=== PATIENT | female | born 1945 | race African-American/Black ===

== ENCOUNTER 2016-10-03 14:50 | Emergency (ER) | payer MEDICARE, MEDICAID ==
[~2016-10-03] VITALS: Ht 152.4 cm; Wt 111.0 kg
[~2016-10-03 14:50] MED LIST: AGGRENOX1 CAP OR; ALBUTEROL SUL0.083 % IN; ALLOPURINOL300 MG PO; AMLODIPINE2.5 MG PO; AMOXICILLIN500 MG OR; AMOXIL500 MG OR; AVELOX400 MG PO; BD PEN NEEDL32 GX4MM; BD PEN NEEDL32 GX4MM SC; BUMETANIDE1 MG PO; BUMEX OR; BUMEX PO; BUMEX0.5 MG OR; COLCHICINE0.6 M1 OR; COREG6.25 MG PO; COUMADIN5 MG PO; DILAUDID 2MG2 MG/TA1 PO; DILAUDID4 MG PO; DIOVAN80 MG OR; DIOVAN80 MG PO; DURAGESIC75 MCG/H1; FENTANYL TD; FLEXERIL OR; FLEXERIL PO; FOLIC ACID PO; FOLIC ACID1 MG PO; FUROSEMIDE40 MG PO; GABAPENTIN100 MG PO; GABAPENTIN300 MG PO; GABAPENTIN400 MG PO; GLIPIZIDE ER2.5 MG OR; GLIPIZIDE ER2.5 MG PO; GLIPIZIDE10 MG PO; INDOMETHACIN50 MG PO; IPRATROPIUM BROMIDE IN; IPRATROPIUM BROMIDE/ IN; ISOSORB MONO30 MG PO; LASIX 40 MG TAB40 MG PO; LASIX 40 MG40 MG/TAB PO; LEVEMIR FLEXPEN SC; LEVEMIR SC; LORTAB 10 OR; LORTAB 10 PO; LUMIGAN0.01 % OU; LYRICA50 MG PO; MAGNESIUM-OX400 MG PO; MEDDOSEPAK PO; MELOXICAM15 MG PO; METAXALONE800 M1 PO; METFORMIN500 M1 PO; METOPROL TAR25 MG PO; MOBIC15 M1 PO; NOVOLIN 70/30 SC; NOVOLOG100 IU/1 M SC; OMEPRAZOLE40 MG PO; OXYGEN NAB; PERCOCET1 TA2 OR; POT CHLORIDE20 ME3 PO; POTASSIUM CHLO20 MEQ PO; PRAVASTATIN80 MG PO; PREDNISONE20 MG PO; PRILOSEC20 MG/CAP PO; PROMETH/COD1 ML OR; REQUIP0.5 MG PO; ROBITUSSI8 OR; ROPINIROLE0.5 MG OR; ROPINIROLE0.5 MG PO; ROPINIROLE1 MG PO; SPIRIVA IN; STOOL SOFTENER100 MG PO; SYMBICORT1 AE1 IN; TEMAZEPAM15 MG PO; ULTRAM50 M1 PO; ULTRAM50 MG OR; VENTOLIN HFA IN; VICODIN1 TAB PO; VICTOZA18 MG/3 ML SC; VITAMIN D50000 UN1 PO; ZITHROMAX250 MG OR; ZITHROMAX500 MG PO; [UNRECOGNIZED DRUG - REMARK]; [UNRECOGNIZED DRUG - REMARK] SC
[2016-10-03] MEDS ORDERED: LYRICA75 MG PO (15:19)
[2016-10-03 15:25] VITALS: BP 143/75
[2016-10-03] MEDS ORDERED: COLACE100 MG PO (15:29)
[2016-10-03] MEDS ORDERED: LEVEMIR FL100 UNIT/M SC (15:30)
[2016-10-03] MEDS ORDERED: BREO ELLIPTA 101 INH IN (15:31)
[2016-10-03] MEDS ORDERED: ULORIC40 MG PO (15:31)
[2016-10-03] MEDS ORDERED: ZYLOPRIM300 MG PO (15:32)
[2016-10-03] MEDS ORDERED: TIZANIDINE HCL4 MG PO (15:32)
[2016-10-03] MEDS ORDERED: CILOSTAZOL50 MG PO (15:33)
[2016-10-03] MEDS ORDERED: LOPRESSOR25 M1 PO (15:34)
[2016-10-03] MEDS ORDERED: HUMULIN 70/30 K1 INJ IJ (15:34)
[2016-10-03] MEDS ORDERED: BUMETANIDE2 MG PO (15:34)
[2016-10-03] MEDS ORDERED: HYDROMORPHON8 MG PO (15:35)
[2016-10-03] MEDS ORDERED: FENTANYL100 MCG/H TD (15:35)
[2016-10-03] MEDS ORDERED: KP FOLIC ACID800 MCG PO (15:40)
[2016-10-03] MEDS ORDERED: DUONEB IN (15:41)
== END 2016-10-03 15:25 | disposition home or self-care (01) ==
LOC: ED 14:50
DX: E11.42 Type 2 diabetes mellitus with diabetic polyneuropathy (principal); R22.43 Localized swelling, mass and lump, lower limb, bilateral

== ENCOUNTER → 2018-09-06 | Outpatient (REF) | payer MEDICARE, MEDICAID ==
[~2018-09-06] MED LIST changes: +BREO ELLIPTA 101 INH IN; +BUMETANIDE2 MG PO; +CILOSTAZOL50 MG PO; +COLACE100 MG PO; +DUONEB IN; +FENTANYL100 MCG/H TD; +HUMULIN 70/30 K1 INJ IJ; +HYDROMORPHON8 MG PO; +KP FOLIC ACID800 MCG PO; +LEVEMIR FL100 UNIT/M SC; +LOPRESSOR25 M1 PO; +LYRICA75 MG PO; +TIZANIDINE HCL4 MG PO; +ULORIC40 MG PO; +ZYLOPRIM300 MG PO
[2018-09-06 13:28] LABS: CREATININE 2.5 mg/dL (0.5-1.0); MAGNESIUM 1.8 mg/dL (1.6-2.3)
== END | disposition home or self-care (01) ==
LOC: LAB 12:40
PROVIDERS: ATTEND Internal Medicine Nephrology
DX: Z87.448 Personal history of other diseases of urinary system (principal)

== ENCOUNTER → 2018-10-04 | Outpatient (REF) | payer MEDICARE, MEDICAID | END | disposition home or self-care (01) | LOC: LAB 10:19 | PROVIDERS: ATTEND Internal Medicine Endocrinology, Diabetes & Metabolism | DX: E11.65 Type 2 diabetes mellitus with hyperglycemia (principal) ==

== ENCOUNTER 2021-10-28 16:44 | Emergency (ER) | payer MEDICARE, MEDICAID ==
[~2021-10-28] VITALS: Ht 152.4 cm; Wt 100.0 kg
[2021-10-28 17:44] LABS: HEMATOCRIT 36.4 % (37.0-47.0); IMMATURE GRANULOCYTES 0.4 % (0.0-5.0); MEAN CELL VOLUME 93.6 fL CALC (80.0-100.0); MEAN CORPUSCULAR HGB 28.3 pG CALC (26.0-32.0); MEAN CORPUSCULAR HGB CONC 30.2 g/dL CAL (32.0-36.0); NEUT# 4.22 thou/uL (2.00-7.15); RED BLOOD COUNT 3.89 mill/uL (4.20-5.60); RED CELL DISTRI WIDTH 12.6 % (11.5-15.5)
[2021-10-28 18:00] LABS: ALBUMIN 4.2 g/dL (3.2-5.0); BILIRUBIN, TOTAL 0.3 mg/dL (0.0-1.4); CREATININE 3.2 mg/dL (0.5-1.0); POTASSIUM 4.4 mmol/l (3.5-5.1); TOTAL PROTEIN 8.1 g/dL (6.3-8.2)
[2021-10-28 18:35] VITALS: BP 127/63
== END 2021-10-28 19:05 | disposition home or self-care (01) ==
LOC: ED 16:44
PROVIDERS: Family Medicine
DX: S00.83XA Contusion of other part of head, initial encounter (principal); S00.81XA Abrasion of other part of head, initial encounter; I10 Essential (primary) hypertension; E11.9 Type 2 diabetes mellitus without complications; W01.0XXA Fall on same level from slipping, tripping and stumbling without subsequent striking against object, initial encounter; Z79.4 Long term (current) use of insulin

== ENCOUNTER 2021-11-06 12:49 | Emergency (ER) | payer MEDICARE, MEDICAID ==
[~2021-11-06] VITALS: Ht 152.4 cm; Wt 100.7 kg
[2021-11-06 14:20] VITALS: BP 142/73
== END 2021-11-06 14:39 | disposition home or self-care (01) ==
LOC: ED 12:49
DX: S80.01XA Contusion of right knee, initial encounter (principal); I10 Essential (primary) hypertension; E11.9 Type 2 diabetes mellitus without complications; W01.0XXA Fall on same level from slipping, tripping and stumbling without subsequent striking against object, initial encounter; Y92.009 Unspecified place in unspecified non-institutional (private) residence as the place of occurrence of the external cause; Z79.4 Long term (current) use of insulin

== ENCOUNTER 2022-02-17 19:50 | Emergency (ER) | payer MEDICARE, MEDICAID ==
[~2022-02-17] VITALS: Ht 152.4 cm; Wt 105.5 kg
[2022-02-17 19:57] VITALS: BP 164/83
[2022-02-17 21:18] LABS: HEMATOCRIT 38.1 % (37.0-47.0); HEMOGLOBIN 11.1 g/dl (12.0-16.0); MEAN CELL VOLUME 96.9 fL CALC (80.0-100.0); MEAN CORPUSCULAR HGB 28.2 pG CALC (26.0-32.0); MEAN CORPUSCULAR HGB CONC 29.1 g/dL CAL (32.0-36.0); NEUT# 3.68 thou/uL (2.00-7.15); RED BLOOD COUNT 3.93 mill/uL (4.20-5.60); RED CELL DISTRI WIDTH 14.5 % (11.5-15.5)
[2022-02-17 21:27] LABS: URINE BILIRUBIN - DIPSTICK NEGATIVE (NEGATIVE); URINE BLOOD DIPSTICK TRACE-INTACT (NEGATIVE); URINE COLOR YELLOW; URINE GLUCOSE - DIPSTICK 250 mg/dL (NEGATIVE); URINE KETONE NEGATIVE (NEGATIVE); URINE LEUK ESTERASE NEGATIVE (NEGATIVE); URINE PH 6.5 (4.5-8.0); URINE PROTEIN - DIPSTICK 100 mg/dL (NEG-TRACE); URINE SPECIFIC GRAVITY 1.015; URINE UROBILINOGEN - DIPSTICK 0.2 E.U./dL (0.2)
[2022-02-17 21:30] VITALS: BP 182/92
[2022-02-17 21:33] LABS: URINE NITRITE - DIPSTICK NEGATIVE (Negative); URINE RBC 0-2 RBC/hpf (0-5); URINE SQUAMOUS EPITHELIAL CELL RARE EPI/hpf (0-FEW); URINE WBC 0-2 WBC/hpf (0-5)
[2022-02-17 21:46] VITALS: BP 167/80
[2022-02-17 21:46] LABS: ALBUMIN 3.9 g/dL (3.2-5.0); CREATININE 2.5 mg/dL (0.5-1.0); POTASSIUM 5.1 mmol/l (3.5-5.1); TOTAL PROTEIN 6.8 g/dL (6.3-8.2)
[2022-02-17 21:48] LABS: BILIRUBIN, TOTAL 0.3 mg/dL (0.0-1.4)
[2022-02-17 22:00] VITALS: BP 164/96
[2022-02-17] MEDS ORDERED: ULTRAM50 M1 PO (22:01)
[2022-02-17 22:03] VITALS: BP 164/96
== END 2022-02-17 22:19 | disposition home or self-care (01) ==
LOC: ED 19:50
PROVIDERS: Nurse Practitioner
DX: M54.6 Pain in thoracic spine (principal); I10 Essential (primary) hypertension; E11.9 Type 2 diabetes mellitus without complications; X50.0XXA Overexertion from strenuous movement or load, initial encounter; Y93.89 Activity, other specified; Y92.003 Bedroom of unspecified non-institutional (private) residence as the place of occurrence of the external cause; Z79.4 Long term (current) use of insulin; Z95.818 Presence of other cardiac implants and grafts

== ENCOUNTER 2022-07-24 05:25 | Emergency (ER) | payer MEDICARE, MEDICAID ==
[~2022-07-24] VITALS: Ht 157.5 cm; Wt 104.0 kg
[2022-07-24 07:26] VITALS: BP 136/86
== END 2022-07-24 07:40 | disposition home or self-care (01) ==
LOC: ED 05:25
DX: S06.0X0A Concussion without loss of consciousness, initial encounter (principal); S00.03XA Contusion of scalp, initial encounter; I10 Essential (primary) hypertension; E11.9 Type 2 diabetes mellitus without complications; W18.39XA Other fall on same level, initial encounter; Y92.002 Bathroom of unspecified non-institutional (private) residence as the place of occurrence of the external cause; Z79.4 Long term (current) use of insulin; Z95.818 Presence of other cardiac implants and grafts

== ENCOUNTER 2022-07-29 01:45 | Emergency (ER) | payer MEDICARE, MEDICAID ==
[~2022-07-29] VITALS: Ht 157.5 cm; Wt 110.4 kg
[2022-07-29] VITALS (16 sets, daily range): BP systolic 100–189; BP diastolic 65–142
[2022-07-29 04:33] LABS: BASO% 0.4 % (0-3); EOS% 1.7 % (0-8); HEMATOCRIT 36.6 % (37.0-47.0); HEMOGLOBIN 10.7 g/dl (12.0-16.0); IMMATURE GRANULOCYTES 0.9 % (0.0-5.0); LYMPH% 16.4 % (15-41); MEAN CELL VOLUME 98.4 fL CALC (80.0-100.0); MEAN CORPUSCULAR HGB 28.8 pG CALC (26.0-32.0); MEAN CORPUSCULAR HGB CONC 29.2 g/dL CAL (32.0-36.0); MONO% 11.8 % (2-13); NEUT# 5.32 thou/uL (2.00-7.15); NEUT% 68.8 % (42-76); RED BLOOD COUNT 3.72 mill/uL (4.20-5.60); RED CELL DISTRI WIDTH 14.1 % (11.5-15.5)
[2022-07-29 04:34] LABS: URINE BILIRUBIN - DIPSTICK NEGATIVE (NEGATIVE); URINE BLOOD DIPSTICK SMALL (NEGATIVE); URINE COLOR YELLOW; URINE GLUCOSE - DIPSTICK NEGATIVE (NEGATIVE); URINE KETONE NEGATIVE (NEGATIVE); URINE LEUK ESTERASE NEGATIVE (NEGATIVE); URINE PROTEIN - DIPSTICK 100 mg/dL (NEG-TRACE); URINE SPECIFIC GRAVITY 1.025; URINE UROBILINOGEN - DIPSTICK 0.2 E.U./dL (0.2)
[2022-07-29 04:35] LABS: URINE NITRITE - DIPSTICK NEGATIVE (Negative)
[2022-07-29 04:41] LABS: URINE AMORPH SEDIMENT FEW hpf (NONE-FEW); URINE BACTERIA FEW hpf; URINE SQUAMOUS EPITHELIAL CELL FEW EPI/hpf (0-FEW)
[2022-07-29 04:45] LABS: ALBUMIN 4.3 g/dL (3.2-5.0); BILIRUBIN, TOTAL 0.2 mg/dL (0.0-1.4); CREATININE 3.2 mg/dL (0.5-1.0); TOTAL PROTEIN 7.6 g/dL (6.3-8.2)
[2022-07-29 04:46] LABS: POTASSIUM 5.7 mmol/l (3.5-5.1)
[2022-07-29] MEDS ORDERED: SPS15 GM/601 PO (06:38)
== END 2022-07-29 09:55 | disposition home or self-care (01) ==
LOC: ED 01:45
PROVIDERS: Family Medicine
DX: S00.03XA Contusion of scalp, initial encounter (principal); M54.2 Cervicalgia; I13.0 Hypertensive heart and chronic kidney disease with heart failure and stage 1 through stage 4 chronic kidney disease, or unspecified chronic kidney disease; I50.9 Heart failure, unspecified; E11.22 Type 2 diabetes mellitus with diabetic chronic kidney disease; N18.4 Chronic kidney disease, stage 4 (severe); E87.5 Hyperkalemia; I48.91 Unspecified atrial fibrillation; E78.00 Pure hypercholesterolemia, unspecified; R53.1 Weakness; R26.89 Other abnormalities of gait and mobility; W18.30XA Fall on same level, unspecified, initial encounter; Y92.009 Unspecified place in unspecified non-institutional (private) residence as the place of occurrence of the external cause; Z95.2 Presence of prosthetic heart valve; Z91.81 History of falling; Z79.4 Long term (current) use of insulin; Z95.818 Presence of other cardiac implants and grafts

== ENCOUNTER 2022-07-30 03:53 | Observation (INO) | payer MEDICARE, MEDICAID ==
[~2022-07-30] VITALS: Ht 157.5 cm; Wt 103.8 kg
[2022-07-30] VITALS (18 sets, daily range): BP systolic 97–188; BP diastolic 57–88
[~2022-07-30 03:53] MED LIST changes: +SPS15 GM/601 PO
[2022-07-30 06:25] LABS: BASO% 0.5 % (0-3); EOS% 2.8 % (0-8); HEMATOCRIT 32.8 % (37.0-47.0); HEMOGLOBIN 9.7 g/dl (12.0-16.0); IMMATURE GRANULOCYTES 0.2 % (0.0-5.0); LYMPH% 14.4 % (15-41); MEAN CELL VOLUME 98.2 fL CALC (80.0-100.0); MEAN CORPUSCULAR HGB CONC 29.6 g/dL CAL (32.0-36.0); MONO% 13.8 % (2-13); NEUT# 4.21 thou/uL (2.00-7.15); NEUT% 68.3 % (42-76); RED BLOOD COUNT 3.34 mill/uL (4.20-5.60); RED CELL DISTRI WIDTH 14.1 % (11.5-15.5)
[2022-07-30 06:36] LABS: ALBUMIN 4.2 g/dL (3.2-5.0); CREATININE 3.2 mg/dL (0.5-1.0); TOTAL PROTEIN 7.8 g/dL (6.3-8.2)
[2022-07-30 06:37] LABS: BILIRUBIN, TOTAL 0.3 mg/dL (0.0-1.4); POTASSIUM 5.5 mmol/l (3.5-5.1)
[2022-07-30 06:42] LABS: INTERNATIONAL NORMALIZED RATIO 1.1 RATIO (0.7-1.3); PROTHROMBIN TIME 10.7 SECONDS (9.0-12.5)
[2022-07-31] VITALS (12 sets, daily range): BP systolic 143–194; BP diastolic 52–71
[2022-07-31 05:28] LABS: BASO% 0.5 % (0-3); EOS% 2.4 % (0-8); HEMATOCRIT 31.6 % (37.0-47.0); HEMOGLOBIN 9.5 g/dl (12.0-16.0); IMMATURE GRANULOCYTES 0.3 % (0.0-5.0); LYMPH% 23.3 % (15-41); MEAN CELL VOLUME 96.6 fL CALC (80.0-100.0); MEAN CORPUSCULAR HGB 29.1 pG CALC (26.0-32.0); MEAN CORPUSCULAR HGB CONC 30.1 g/dL CAL (32.0-36.0); MONO% 14.8 % (2-13); NEUT# 3.48 thou/uL (2.00-7.15); NEUT% 58.7 % (42-76); RED BLOOD COUNT 3.27 mill/uL (4.20-5.60); RED CELL DISTRI WIDTH 14.1 % (11.5-15.5)
[2022-07-31 05:46] LABS: ALBUMIN 3.8 g/dL (3.2-5.0); CHOLESTEROL HDL RATIO 2.2 (<4.4 (CALC)); CREATININE 3.1 mg/dL (0.5-1.0); POTASSIUM 5.1 mmol/l (3.5-5.1); TOTAL PROTEIN 7.1 g/dL (6.3-8.2)
[2022-07-31 05:48] LABS: BILIRUBIN, TOTAL 0.5 mg/dL (0.0-1.4)
[2022-08-01 04:00] VITALS: BP 145/55
[2022-08-01 04:28] VITALS: BP 145/55
[2022-08-01 05:05] LABS: BASO% 0.7 % (0-3); EOS% 5.5 % (0-8); HEMATOCRIT 32.2 % (37.0-47.0); HEMOGLOBIN 9.9 g/dl (12.0-16.0); IMMATURE GRANULOCYTES 0.4 % (0.0-5.0); LYMPH% 26.6 % (15-41); MEAN CELL VOLUME 94.4 fL CALC (80.0-100.0); MEAN CORPUSCULAR HGB CONC 30.7 g/dL CAL (32.0-36.0); MONO% 13.1 % (2-13); NEUT# 3.02 thou/uL (2.00-7.15); NEUT% 53.7 % (42-76); RED BLOOD COUNT 3.41 mill/uL (4.20-5.60); RED CELL DISTRI WIDTH 14.1 % (11.5-15.5)
[2022-08-01 05:17] LABS: ALBUMIN 3.5 g/dL (3.2-5.0); BILIRUBIN, TOTAL 0.4 mg/dL (0.0-1.4); CREATININE 3.1 mg/dL (0.5-1.0); TOTAL PROTEIN 6.7 g/dL (6.3-8.2)
[2022-08-01 06:45] VITALS: BP 136/73
[2022-08-01 10:23] VITALS: BP 130/76
[2022-08-01 16:03] VITALS: BP 152/59
[2022-08-01 20:02] VITALS: BP 116/46
[2022-08-02 00:19] VITALS: BP 131/47
[2022-08-02 04:19] VITALS: BP 139/62
[2022-08-02 05:32] LABS: BASO% 0.8 % (0-3); EOS% 7.3 % (0-8); HEMATOCRIT 33.1 % (37.0-47.0); HEMOGLOBIN 9.9 g/dl (12.0-16.0); IMMATURE GRANULOCYTES 0.2 % (0.0-5.0); LYMPH% 34.5 % (15-41); MEAN CELL VOLUME 95.9 fL CALC (80.0-100.0); MEAN CORPUSCULAR HGB 28.7 pG CALC (26.0-32.0); MEAN CORPUSCULAR HGB CONC 29.9 g/dL CAL (32.0-36.0); MONO% 15.3 % (2-13); NEUT% 41.9 % (42-76); RED BLOOD COUNT 3.45 mill/uL (4.20-5.60); RED CELL DISTRI WIDTH 13.9 % (11.5-15.5)
[2022-08-02 05:49] LABS: ALBUMIN 3.1 g/dL (3.2-5.0); CREATININE 3.1 mg/dL (0.5-1.0); POTASSIUM 3.6 mmol/l (3.5-5.1); TOTAL PROTEIN 6.2 g/dL (6.3-8.2)
[2022-08-02 05:50] LABS: BILIRUBIN, TOTAL 0.2 mg/dL (0.0-1.4)
[2022-08-02 06:47] VITALS: BP 128/59
[2022-08-02 19:40] VITALS: BP 122/49
[2022-08-02 23:01] VITALS: BP 95/47
[2022-08-02 23:52] VITALS: BP 118/49
[2022-08-03 04:14] VITALS: BP 144/68
[2022-08-03 06:36] VITALS: BP 121/49
[2022-08-03 11:34] VITALS: BP 130/47
[2022-08-03 11:52] VITALS: BP 130/47
[2022-08-03 14:10] VITALS: BP 121/62
== END 2022-08-03 17:47 ==
LOC: ED 03:53 → ED-I 06:44 → ED 07:02 → MS2 07:03
PROVIDERS: Family Medicine; Internal Medicine; ADMIT Internal Medicine; ATTEND Internal Medicine
PROC: 0T9B70Z Drainage of Bladder with Drainage Device, Via Natural or Artificial Opening (ICD-10-PCS; principal; 2022-07-30)
DX: I13.0 Hypertensive heart and chronic kidney disease with heart failure and stage 1 through stage 4 chronic kidney disease, or unspecified chronic kidney disease (principal); I50.9 Heart failure, unspecified; E11.22 Type 2 diabetes mellitus with diabetic chronic kidney disease; N18.4 Chronic kidney disease, stage 4 (severe); J44.9 Chronic obstructive pulmonary disease, unspecified; R91.8 Other nonspecific abnormal finding of lung field; E87.5 Hyperkalemia; I48.91 Unspecified atrial fibrillation; E78.00 Pure hypercholesterolemia, unspecified; Z95.818 Presence of other cardiac implants and grafts; Z95.2 Presence of prosthetic heart valve; Z99.81 Dependence on supplemental oxygen; Z79.4 Long term (current) use of insulin; Z95.1 Presence of aortocoronary bypass graft; Z20.822 Contact with and (suspected) exposure to COVID-19
CPT/HCPCS: J1650

== ENCOUNTER 2022-10-24 03:01 | Emergency (ER) | payer MEDICARE, MEDICAID ==
[2022-10-24] VITALS (27 sets, daily range): BP systolic 92–170; BP diastolic 52–86
[~2022-10-24] VITALS: Ht 157.5 cm; Wt 93.0 kg
[2022-10-24 03:50] LABS: BASO% 0.5 % (0-3); EOS% 3.8 % (0-8); HEMOGLOBIN 11.1 g/dl (12.0-16.0); IMMATURE GRANULOCYTES 3.8 % (0.0-5.0); LYMPH% 39.1 % (15-41); MEAN CELL VOLUME 97.3 fL CALC (80.0-100.0); MEAN CORPUSCULAR HGB 27.5 pG CALC (26.0-32.0); MEAN CORPUSCULAR HGB CONC 28.2 g/dL CAL (32.0-36.0); NEUT# 2.56 thou/uL (2.00-7.15); NEUT% 40.8 % (42-76); RED BLOOD COUNT 4.04 mill/uL (4.20-5.60); RED CELL DISTRI WIDTH 13.7 % (11.5-15.5)
[2022-10-24 03:58] LABS: HEMATOCRIT 39.3 % (37.0-47.0)
[2022-10-24 04:04] LABS: ALBUMIN 4.1 g/dL (3.2-5.0); CREATININE 3.6 mg/dL (0.5-1.0); TOTAL PROTEIN 7.5 g/dL (6.3-8.2)
[2022-10-24 04:13] LABS: PROTHROMBIN TIME 10.2 SECONDS (9.0-12.5)
[2022-10-24 04:15] LABS: BILIRUBIN, TOTAL 0.4 mg/dL (0.02-1.3); POTASSIUM 5.9 mmol/l (3.5-5.1)
[2022-10-24 04:41] LABS: URINE BILIRUBIN - DIPSTICK NEGATIVE (NEGATIVE); URINE BLOOD DIPSTICK SMALL (NEGATIVE); URINE COLOR YELLOW; URINE GLUCOSE - DIPSTICK NEGATIVE (NEGATIVE); URINE KETONE NEGATIVE (NEGATIVE); URINE PROTEIN - DIPSTICK 100 mg/dL (NEG-TRACE); URINE UROBILINOGEN - DIPSTICK 0.2 E.U./dL (0.2)
[2022-10-24 04:42] LABS: URINE LEUK ESTERASE LARGE (NEGATIVE); URINE NITRITE - DIPSTICK NEGATIVE (Negative)
[2022-10-24 04:47] LABS: URINE BACTERIA MODERATE hpf; URINE RBC 25-50 RBC/hpf (0-5); URINE SQUAMOUS EPITHELIAL CELL FEW EPI/hpf (0-FEW); URINE WBC >100 WBC/hpf (0-5)
[2022-10-24] MEDS ORDERED: SPS15 GM/601 PO ×2 (06:12→06:16)
[2022-10-24] MEDS ORDERED: PREDNISONE50 MG PO (06:16)
[2022-10-24] MEDS ORDERED: CIPROFLOXACN500 MG PO (06:32)
== END 2022-10-24 10:35 | disposition home or self-care (01) ==
LOC: ED 03:01
PROVIDERS: Family Medicine
DX: J44.1 Chronic obstructive pulmonary disease with (acute) exacerbation (principal); N39.0 Urinary tract infection, site not specified; I13.2 Hypertensive heart and chronic kidney disease with heart failure and with stage 5 chronic kidney disease, or end stage renal disease; E11.22 Type 2 diabetes mellitus with diabetic chronic kidney disease; N18.5 Chronic kidney disease, stage 5; I50.9 Heart failure, unspecified; E87.5 Hyperkalemia; I48.91 Unspecified atrial fibrillation; E78.00 Pure hypercholesterolemia, unspecified; B96.1 Klebsiella pneumoniae [K. pneumoniae] as the cause of diseases classified elsewhere; Z16.12 Extended spectrum beta lactamase (ESBL) resistance; Z99.81 Dependence on supplemental oxygen; Z79.4 Long term (current) use of insulin

== ENCOUNTER 2022-11-06 18:13 | Emergency (ER) | payer MEDICARE, MEDICAID ==
[~2022-11-06] VITALS: Ht 157.5 cm; Wt 98.7 kg
[2022-11-06] VITALS (7 sets, daily range): BP systolic 101–123; BP diastolic 51–67
[~2022-11-06 18:13] MED LIST changes: +CIPROFLOXACN500 MG PO; +PREDNISONE50 MG PO
[2022-11-06 18:47] LABS: URINE BILIRUBIN - DIPSTICK NEGATIVE (NEGATIVE); URINE BLOOD DIPSTICK SMALL (NEGATIVE); URINE COLOR YELLOW; URINE GLUCOSE - DIPSTICK NEGATIVE (NEGATIVE); URINE KETONE NEGATIVE (NEGATIVE); URINE PROTEIN - DIPSTICK 100 mg/dL (NEG-TRACE); URINE UROBILINOGEN - DIPSTICK 0.2 E.U./dL (0.2)
[2022-11-06 18:47] LABS: BASO% 0.2 % (0-3); EOS% 3.4 % (0-8); HEMATOCRIT 37.5 % (37.0-47.0); IMMATURE GRANULOCYTES 2.5 % (0.0-5.0); LYMPH% 5.9 % (15-41); MEAN CELL VOLUME 93.8 fL CALC (80.0-100.0); MEAN CORPUSCULAR HGB 27.5 pG CALC (26.0-32.0); MEAN CORPUSCULAR HGB CONC 29.3 g/dL CAL (32.0-36.0); MONO% 7.8 % (2-13); NEUT# 11.75 thou/uL (2.00-7.15); NEUT% 80.2 % (42-76); RED CELL DISTRI WIDTH 13.5 % (11.5-15.5)
[2022-11-06 18:48] LABS: URINE LEUK ESTERASE SMALL (NEGATIVE); URINE NITRITE - DIPSTICK NEGATIVE (Negative)
[2022-11-06 18:55] LABS: URINE SQUAMOUS EPITHELIAL CELL FEW EPI/hpf (0-FEW)
[2022-11-06 18:56] LABS: URINE YEAST MANY hpf
[2022-11-06 18:58] LABS: ALBUMIN 3.9 g/dL (3.2-5.0); BILIRUBIN, TOTAL 0.3 mg/dL (0.02-1.3); POTASSIUM 4.9 mmol/l (3.5-5.1); TOTAL PROTEIN 6.8 g/dL (6.3-8.2)
[2022-11-06 19:06] LABS: CREATININE 2.1 mg/dL (0.5-1.0)
[2022-11-06] MEDS ORDERED: ALBUTEROL SUL0.083 % IN (19:55)
== END 2022-11-06 20:34 | disposition home or self-care (01) ==
LOC: ED 18:13
PROVIDERS: Family Medicine
DX: J96.10 Chronic respiratory failure, unspecified whether with hypoxia or hypercapnia (principal); I13.0 Hypertensive heart and chronic kidney disease with heart failure and stage 1 through stage 4 chronic kidney disease, or unspecified chronic kidney disease; E11.22 Type 2 diabetes mellitus with diabetic chronic kidney disease; N18.4 Chronic kidney disease, stage 4 (severe); I48.91 Unspecified atrial fibrillation; Z79.4 Long term (current) use of insulin; Z99.81 Dependence on supplemental oxygen; Z95.2 Presence of prosthetic heart valve; Z95.818 Presence of other cardiac implants and grafts; Z20.822 Contact with and (suspected) exposure to COVID-19

== ENCOUNTER 2022-11-13 15:30 | Inpatient (IN) | payer MEDICARE, MEDICAID ==
[2022-11-13] VITALS (46 sets, daily range): BP systolic 84–140; BP diastolic 43–96
[~2022-11-13] VITALS: Ht 157.5 cm; Wt 87.8 kg
[~2022-11-13 15:30] MED LIST changes: -BUMETANIDE2 MG PO; -LOPRESSOR25 M1 PO; +LOPRESSOR50 M1 PO
--- NOTE | 2022-11-13 16:06 | NUR ---
pt arrived by ems for increased sob today. per ems, pt was wearing 5LNC at home with room air sat of 68%, per ems pt was placed on NRB, sats increased to 90%, then switche to cpap, bs 133.
--- NOTE | 2022-11-13 16:25 | NUR ---
at bedside for central line, left IJ
[2022-11-13 16:31] LABS: BASO% 0.3 % (0-3); EOS% 1.4 % (0-8); HEMATOCRIT 34.5 % (37.0-47.0); HEMOGLOBIN 9.7 g/dl (12.0-16.0); IMMATURE GRANULOCYTES 2.3 % (0.0-5.0); LYMPH% 9.6 % (15-41); MEAN CELL VOLUME 97.5 fL CALC (80.0-100.0); MEAN CORPUSCULAR HGB 27.4 pG CALC (26.0-32.0); MEAN CORPUSCULAR HGB CONC 28.1 g/dL CAL (32.0-36.0); MONO% 4.3 % (2-13); NEUT# 9.06 thou/uL (2.00-7.15); NEUT% 82.1 % (42-76); RED BLOOD COUNT 3.54 mill/uL (4.20-5.60); RED CELL DISTRI WIDTH 13.3 % (11.5-15.5)
[2022-11-13 16:41] LABS: ALBUMIN 3.7 g/dL (3.2-5.0); BILIRUBIN, TOTAL 0.2 mg/dL (0.02-1.3); CREATININE 2.6 mg/dL (0.5-1.0); POTASSIUM 4.8 mmol/l (3.5-5.1); TOTAL PROTEIN 6.5 g/dL (6.3-8.2)
--- NOTE | 2022-11-13 17:39 | NUR ---
pt resting comfortably, family at bedside
--- NOTE | 2022-11-13 18:44 | NUR ---
called dr tomlin regarding pts bp, states it is ok to send pt to icu
--- NOTE | 2022-11-13 18:52 | NUR ---
report called to icu, all questions anwsered at this time
--- NOTE | 2022-11-13 20:00 | NUR ---
Reassessment of patient completed. No distress noted.
--- NOTE | 2022-11-13 20:50 | NUR ---
PT BROUGHT UP ON STRETCHER, MONITOR AND 4 LITERS NC WITH NAD. PT EDUCATED ON HOW TO USE CALL LIGHT FOR ASSISTANCE, PT AGREED AND UNDERSTOOD. PT RESTING IN BED WITH CALL LIGHT WITH IN REACH AND BED IN THE LOWEST POSITION. WILL CONTINUE TO MONITOR.
--- NOTE | 2022-11-13 21:00 | NUR ---
pt tx to icu on monitor to icu room 2, vss, pt a&o and nad.
--- NOTE | 2022-11-13 21:00 | NUR ---
Reassessment of patient completed. No distress noted.
[2022-11-14] VITALS (65 sets, daily range): BP systolic 91–149; BP diastolic 39–75
[2022-11-14 05:21] LABS: BASO% 0.1 % (0-3); HEMATOCRIT 33.7 % (37.0-47.0); HEMOGLOBIN 9.6 g/dl (12.0-16.0); IMMATURE GRANULOCYTES 2.5 % (0.0-5.0); LYMPH% 7.9 % (15-41); MEAN CELL VOLUME 97.1 fL CALC (80.0-100.0); MEAN CORPUSCULAR HGB 27.7 pG CALC (26.0-32.0); MEAN CORPUSCULAR HGB CONC 28.5 g/dL CAL (32.0-36.0); MONO% 1.1 % (2-13); NEUT# 10.06 thou/uL (2.00-7.15); NEUT% 88.4 % (42-76); RED BLOOD COUNT 3.47 mill/uL (4.20-5.60); RED CELL DISTRI WIDTH 13.2 % (11.5-15.5)
[2022-11-14 05:32] LABS: ALBUMIN 3.4 g/dL (3.2-5.0); CREATININE 2.7 mg/dL (0.5-1.0); POTASSIUM 4.6 mmol/l (3.5-5.1); TOTAL PROTEIN 6.2 g/dL (6.3-8.2)
[2022-11-14 05:53] LABS: BILIRUBIN, TOTAL 0.1 mg/dL (0.02-1.3)
--- NOTE | 2022-11-14 08:00 | NUR ---
Patient lying supin in bed. Patient denies any pain at this time. Patient is afib on the monitor. No s/s of distress. Patient continously coughs up yellow, thick phlegm; suction at bedside. Patient is unable to move arms higher than a 45 degree angle. Patient can move legs from side to side, and lift the R leg off of the bed but immediately drifts back down. Patient is A/O x 4. Breathing is even and unlabored. Bed in lowest position. Call light next to patient's R ear. Will continue to monitor.
--- NOTE | 2022-11-14 09:45 | NUR ---
Dr. Thomas at bedside. Patient can be downgraded to M/S unit. Patient and patient's son aware. Advised downgrade may not happen today, but will contact next of kin prior to move. Patient is to f/u w/ case mgmt about possible rehab or LTC facility placement as patient is unable to perform ADL. Provider suggested removal of central line. Patient recieves IV abx and staff was unable to get a peripheral line placed 11/13. Will keep central line in for IV meds. Will continue to monitor.
--- NOTE | 2022-11-14 10:00 | NUR ---
Patient lying supine in the bed. Patient refused repositioning, states she "is comfortable for now". Patient advised of the stage 2 pressure ulcer on the R buttock and the importance of frequently changing positions when on bedrest. Patient verbalized understanding, but requested to remain as is. No s/s of distress. Patient is afib on the monitor. Will continue to monitor.
--- NOTE | 2022-11-14 12:00 | NUR ---
Patient again refused repositioning. Patient denies any pain at this time. No s/s of distress. Patient is afib on the monitor. Bed in low position. Call light on patient's chest. Will continue to monitor.
--- NOTE | 2022-11-14 12:14 | NUR ---
Patient lying in bed. States her bottom area is sore. Asked patient if we could try repositioning to relieve pressure, patient agreed. Patient repositioned to R side. Patient states positioning offerd relief. No s/s of distress. Will continue to monitor.
--- NOTE | 2022-11-14 14:06 | NUR ---
Patient repositioned to L side. Patient denies any pain at this time. No s/s of distress. Bed in low position. Call light resting on patient's chest. Breathing is even and unlabored. Patient is afib on the monitor. Will continue to monitor.
--- NOTE | 2022-11-14 16:00 | NUR ---
Patient turned to L side. Patient denies any pain. No s/s of distress. Will continue to monitor.
--- NOTE | 2022-11-14 18:15 | NUR ---
Patient lying in bed. Breathing even and unlabored. No s/s of distress. Patient is afib on the monitor. Patient contacted son via cordless and was advised that patient was "not allowed to visit [pt] until she was moved". This news writer spoke with patient's son around noon and informed him that patient was not likely to be downgraded today, son verbalized understanding. Informed son that patient can have visitors from 0800 to 2000.
--- NOTE | 2022-11-14 20:00 | NUR ---
RECEIVED REPORT FROM NURSE MICAELA, PATIENT ALERT ORIENTED FAMILY IN ROOM, HOOKED ON O2 @ 4LPM VIA NC, BREATHING SHALLOW, SPO2 @ 91-96%, PRODUCTIVE COUGH YELLOW THICK IN COLOR, HAS RIJ TRIPLE LUMEN PATENT FLUSHES WELL, ON CARADICA MONITORING, LUNG SOUNDS COARSE, HAS INDWELLING CAMPOS CATHETER DRAINING YELLOW COLORED URINE, CALL LIGHT IN REAXCH.
--- NOTE | 2022-11-14 22:00 | NUR ---
PATIENT GIVEN SNACK AT THIS TIME, PATEINT REMAINS ON O2 @ 4LPM VIA NC, BREATHING UNLABORED CALL LIGHT IN REACH.
--- NOTE | 2022-11-14 23:09 | NUR ---
PATIENT O2 INCREASED TO 5LPM VIA NC, SPO2 ON 4LPM DROPS TO 87%
[2022-11-15 00:01] VITALS: BP 143/75
--- NOTE | 2022-11-15 00:14 | NUR ---
PATIENT AWAKE AT THIS TIME, WATCHING TV, OCCASIONAL COUGHING NOTED, REMAINS ON O2 @ 5LPM AT THIS TIME, NOT IN DISTRESS CALL LIGHT IN REACH.
--- NOTE | 2022-11-15 02:00 | NUR ---
PATEINT ASLEEP AT THSI TIME, REMAINS ON O2 @ 5LPM VIA NC, CALL LIGHT IN REACH.
--- NOTE | 2022-11-15 03:58 | NUR ---
PATIENT COUGHING, SECRETION WHITE THICK, CALLED RT FOR PRN DUONEB.
[2022-11-15 04:00] VITALS: BP 155/77
--- NOTE | 2022-11-15 05:23 | NUR ---
PATIENT AWAKE WATCHING TV, PATIENT REFUSED TO REPOSITION AT THIS TIME, REQUESTED BLANKET PATIENT STATED FEEL COLD, BLANKET PROVIDED CALL LIGHT IN REACH.
[2022-11-15 05:55] LABS: BASO% 0.3 % (0-3); EOS% 0.9 % (0-8); HEMATOCRIT 31.6 % (37.0-47.0); HEMOGLOBIN 8.9 g/dl (12.0-16.0); IMMATURE GRANULOCYTES 1.5 % (0.0-5.0); LYMPH% 16.2 % (15-41); MEAN CELL VOLUME 97.2 fL CALC (80.0-100.0); MEAN CORPUSCULAR HGB 27.4 pG CALC (26.0-32.0); MEAN CORPUSCULAR HGB CONC 28.2 g/dL CAL (32.0-36.0); MONO% 6.7 % (2-13); NEUT# 8.17 thou/uL (2.00-7.15); NEUT% 74.4 % (42-76); RED BLOOD COUNT 3.25 mill/uL (4.20-5.60); RED CELL DISTRI WIDTH 13.7 % (11.5-15.5)
--- NOTE | 2022-11-15 06:07 | NUR ---
AQUACELL PLACED IN BUTTOCKS, PATEINT REPOSITIONED, REMAINS ON O2 @ 5LPM VIA NC.
[2022-11-15 06:11] LABS: ALBUMIN 3.2 g/dL (3.2-5.0); CREATININE 2.6 mg/dL (0.5-1.0); POTASSIUM 4.2 mmol/l (3.5-5.1); TOTAL PROTEIN 5.6 g/dL (6.3-8.2)
--- NOTE | 2022-11-15 06:36 | NUR ---
RECEIVED A CRITICALL CO2 45 AND BUN 100 FROM [facility], DR. COLON MADE AWARE.PATIENT GLUCOSE 61, PATEINT GIVEN APPLE JUICE AND PUDDING
--- NOTE | 2022-11-15 07:15 | NUR ---
REPORT RECEIVED FROM TEACHING ARTIST - PT OBSERVED IN BED WATCHING TV - DENIES ANY PAIN OR NEEDS AT THIS TIME - STABLE ON 5L VIA NC - BED IN LOW LOCKED POSITION WITH SAFETY PRECAUTIONS IN PLACE - CALL LIGHT IN REACH
[2022-11-15 08:00] VITALS: BP 156/67
--- NOTE | 2022-11-15 10:44 | NUR ---
PT RESTING IN BED - DENIES ANY PAIN OR NEEDS CURRENTLY - SATTING 96% ON 5L VIA NC - CALL LIGHT IN REACH
--- NOTE | 2022-11-15 10:45 | NUR ---
PT AT BEDSIDE
--- NOTE | 2022-11-15 11:30 | NUR ---
PT TRANSFERRED TO PA ROOM 278 WITH ALL PERSONAL BELONGINGS IN STABLE CONDITION VIA BED
[2022-11-15 11:34] VITALS: BP 144/64
--- NOTE | 2022-11-15 11:45 | NUR ---
RECIEVED REPORT BEDSIDE FROM ICU NURSE, STABLE CONDITION, PATIENT SAFTEY PRECAUTIONS IN PLACE.
[2022-11-15 15:47] VITALS: BP 150/69
--- NOTE | 2022-11-15 16:00 | NUR ---
PATIENT UP TO CHAIR FOR 2 HOURS THIS AFTERNOON, DAUGHTER IN ROOM, NO S/S OF DISTRESS. PATIENT SAFETY MEASURES IN PLACE.
[2022-11-15 19:00] VITALS: BP 153/72
--- NOTE | 2022-11-15 20:10 | NUR ---
RECEIVED BEDSIDE REPORT FROM [facility] NURSE. PT IS A/OX3, FAMILY AT BEDSIDE AT THIS TIME. PT DENIES ANY PAIN, FIOLEY CATHETER NOTED WITH URINE OUTPUT. RIGHT TRIPLE LUMEN IJ NOTED. EDUCATED PT ON CONTINUED PLAN OF CARE FOR [place]. CALL LIGHT WITHIN REACH AND SAFETY PRECAUTIONS IN PLACE.
[2022-11-16 00:09] VITALS: BP 150/59
--- NOTE | 2022-11-16 00:30 | NUR ---
REPOSITIONED PT IN BED, PULLED THEM UP AND POSITIONED HIGH FOWLERS IN BED. DENIES ANY PAIN AT THIS TIME, NASAL CANNULA IN PLACE. CALL LIGHT PLACED ON CHEST, SAFETY PRECAUTIONS IN PLACE.
[2022-11-16 04:46] VITALS: BP 157/50
[2022-11-16 05:49] LABS: HEMATOCRIT 34.6 % (37.0-47.0); HEMOGLOBIN 9.7 g/dl (12.0-16.0); MEAN CELL VOLUME 96.6 fL CALC (80.0-100.0); MEAN CORPUSCULAR HGB 27.1 pG CALC (26.0-32.0); RED BLOOD COUNT 3.58 mill/uL (4.20-5.60); RED CELL DISTRI WIDTH 13.7 % (11.5-15.5)
--- NOTE | 2022-11-16 05:54 | NUR ---
PT LAYING FOWLERS IN BED AT THIS TIME. REPOSITIONIED PT AND ADMINISTERED TYLENOL FOR PAIN PER EMAR. PT HAS NASAL CANNULA IN PLACE ON 5L O2. CALL LIGHT WITHIN REACH AND SAFETY PRECAUTIONS IN PLACE.
[2022-11-16 06:01] LABS: ALBUMIN 3.3 g/dL (3.2-5.0); CREATININE 2.4 mg/dL (0.5-1.0); MAGNESIUM 1.8 mg/dL (1.6-2.3); POTASSIUM 4.3 mmol/l (3.5-5.1); TOTAL PROTEIN 5.8 g/dL (6.3-8.2)
--- NOTE | 2022-11-16 06:12 | NUR ---
pt had a weight of 92.9 @0500. Nurse stated to weight pt on bed scale instead of willis lift. Nurse Melina notifed of weight.
[2022-11-16 06:16] LABS: BILIRUBIN, TOTAL 0.1 mg/dL (0.02-1.3)
--- NOTE | 2022-11-16 08:00 | NUR ---
PT RESTING IN BED. ASSESSMENT ALLOWED. TELE MONITOR IN PLACE,CONTINOUS MONITORING PER ED. GLUCOSE: 99 NO COVERAGE NEEDED PER SLIDING SCALE. EDUCATED PT IN PLAN OF CARE. PT INIDCATED UNDERSTANDING. FALL/SAFTEY PRECAUTIONIN PLACE. CALL LIGHT WITHIN REACH.
[2022-11-16 08:20] VITALS: BP 161/75
--- NOTE | 2022-11-16 09:16 | NUR ---
MD AT BEDSIDE DISCUSSING POC
[2022-11-16 10:35] LABS: URINE BLOOD DIPSTICK LARGE (NEGATIVE); URINE COLOR YELLOW; URINE GLUCOSE - DIPSTICK NEGATIVE (NEGATIVE); URINE KETONE NEGATIVE (NEGATIVE); URINE LEUK ESTERASE LARGE (Negative); URINE NITRITE - DIPSTICK NEGATIVE (Negative); URINE PH 7.5 (4.5-8.0); URINE PROTEIN - DIPSTICK 30 mg/dL (NEG-TRACE); URINE UROBILINOGEN - DIPSTICK 0.2 E.U./dL (0.2)
[2022-11-16 10:54] LABS: URINE BACTERIA FEW hpf; URINE CLARITY HAZY; URINE MUCUS FEW hpf (NONE-FEW)
[2022-11-16] MEDS ORDERED: HUMALOG100 UNIT/M SC (11:16)
[2022-11-16 11:37] VITALS: BP 164/79
[2022-11-16] MEDS ORDERED: CLOPIDOGREL75 MG PO (12:00)
[2022-11-16] MEDS ORDERED: GABAPENTIN100 MG PO (12:01)
[2022-11-16] MEDS ORDERED: HYDROXYZ HCL25 MG PO (12:03)
--- NOTE | 2022-11-16 12:05 | NUR ---
PT WITH AIDE AT BEDSIDE FOR FEEDING. NO DISTRESS NOTED. FALL/SAFTEY PRECAUTION IN PLACE. CALL LIGHT WITHIN REACH
[2022-11-16] MEDS ORDERED: PANTOPRAZOLE SO40 M1 PO (12:06)
[2022-11-16] MEDS ORDERED: CRESTOR10 MG PO (12:07)
[2022-11-16] MEDS ORDERED: TRELEGY ELLIPTA1 AER IN (12:07)
[2022-11-16] MEDS ORDERED: TRULICITY1.5 MG/0.5 SC (12:08)
--- NOTE | 2022-11-16 13:40 | NUR ---
RETACRIT ORDERED PHARMACY TO DOSE. RETACRIT HELD TODAY DUE TO UNCONTROLLED HYPERTENSION. WILL FOLLOW UP TOMORROW, 11/17/22.
--- NOTE | 2022-11-16 16:00 | NUR ---
PT RESTING IN BED, NO DISTRESS NOTED. BREATHING EVEN AND UNLABORED. FALL/SAFTEY PRECAUTION IN PLACE. CALL LIGHT WITHIN REACH.
[2022-11-16 16:24] VITALS: BP 147/78
[2022-11-16 18:33] VITALS: BP 130/87
--- NOTE | 2022-11-16 19:26 | NUR ---
PERFORMED BEDSIDE REPORT WITH [facility] NURSE. PT NOTED LAYING FOWLERS IN BED, CAMPOS IN PLACE WITH DARK YELLOW URINE OUTPUT PRESENT. AT BEDSIDE. PT DENIES ANY PAIN AT THIS TIME. EDUCATED PT ON CONTINUED PLAN OF CARE FOR [place], CALL LIGHT WITHIN REACH AND SAFETY PRECAUTIONS IN PLACE.
--- NOTE | 2022-11-17 | NUR ---
PT REPOSITIONED TO HELP WITH PRESSURE ULCER ON BUTTOCKS. PT IN FOWELRS IN POSITION AT THIS TIME. CARLYLE CANNULA IN PLACE. DENIES ANY PAIN. CALL LIGHT WITHIN REACH AND SAFETY PRECAUTIONS IN PLACE.
[2022-11-17 00:01] VITALS: BP 122/69
--- NOTE | 2022-11-17 04:30 | NUR ---
PT WAS CLEANED UP AND REPOSITIONED. WEIGHT TAKEN VIA DEONTE LIFT. PT LAYING FOWLERS IN BED AT THIS TIME. NASAL CANNULA IN PLACE. DENIES ANY PAIN. CALL LIGHT WITHIN REACH AND SAFETY PRECAUTIONS IN PLACE.
[2022-11-17 04:47] VITALS: BP 183/88
[2022-11-17 06:58] VITALS: BP 150/80
--- NOTE | 2022-11-17 08:00 | NUR ---
PT ALERT AND ORIENTED.ABLE TO MAKE NEEDS KNOWN. AT BEDSIDE.O2 @ 5L VIA NC.LEFT IJ TRIPLE LUMEN FLUSHES W/O RESISTANCE.COUGH MEDICINE ADMINISTERED REQUESTED BY PT.SAFETY PRECAUTIONS IN PLACE.CALL LIGHT WITHIN PLACE.
[2022-11-17 10:29] LABS: ALBUMIN 3.6 g/dL (3.2-5.0); CREATININE 2.1 mg/dL (0.5-1.0); POTASSIUM 4.9 mmol/l (3.5-5.1)
[2022-11-17 12:00] LABS: URINE BILIRUBIN - DIPSTICK NEGATIVE (NEGATIVE)
[2022-11-17 16:00] VITALS: BP 148/75
--- NOTE | 2022-11-17 20:15 | NUR ---
RECEIVED REPORT FROM [facility] NURSE. PT ON BED LOW FOWLERS POSITION; A&O X3. FAMILY MEMBER AT BEDSIDE. ASSESSMENT COMPLETED. O2 @ 5L VIA NASAL CANNULA IN PLACE. TELEMETRY IN PLACE. FLUSHED IJ TRIPLE LUMEN TO RT SIDE; HEALTHY AND PATENT. ACTIVE BOWEL SOUNDS X4 QUADRANTS. CAMPOS TO GRAVITY: EMPTIED CONTENTS, 600 MLS OF CLEAR, YELLOW URINE. SAFETY PRECAUTIONS IN PLACE WITH CALL LIGHT IN REACH.
[2022-11-17 21:17] VITALS: BP 154/67
[2022-11-18] VITALS (7 sets, daily range): BP systolic 110–142; BP diastolic 39–71
--- NOTE | 2022-11-18 00:20 | NUR ---
PT REPOSITIONED AT THIS TIME. PT RESTING ON BED WITH EYES CLOSED. NO DISTRESS OR PAIN NOTED. TELEMETRY IN PLACE. NO VOICED NEEEDS AT THIS TIME. SAFETY PRECAUTIONS IN PLACE. CALL LIGHT IN REACH.
--- NOTE | 2022-11-18 04:15 | NUR ---
PT RESTING ON BED WITH EYES CLOSED. NO DISTRESS OR PAIN NOTED. BLOOD SAMPLE OBTAINED AND SENT TO LAB. FLUSHED IJ TRIPLE LUMEN TO RT SIDE; HEALTHY AND PATENT. EMPTIED CAMPOS CONTENTS: 450 MLS OF CLEAR YELLOW URINE. SAFETY PRECAUTIONS IN PLACE WITH CALL LIGHT IN REACH.
[2022-11-18 05:34] LABS: HEMATOCRIT 34.2 % (37.0-47.0); HEMOGLOBIN 9.7 g/dl (12.0-16.0); MEAN CELL VOLUME 96.1 fL CALC (80.0-100.0); MEAN CORPUSCULAR HGB 27.2 pG CALC (26.0-32.0); MEAN CORPUSCULAR HGB CONC 28.4 g/dL CAL (32.0-36.0); RED BLOOD COUNT 3.56 mill/uL (4.20-5.60); RED CELL DISTRI WIDTH 13.7 % (11.5-15.5)
[2022-11-18 05:47] LABS: ALBUMIN 3.4 g/dL (3.2-5.0); CREATININE 2.4 mg/dL (0.5-1.0); MAGNESIUM 1.9 mg/dL (1.6-2.3); TOTAL PROTEIN 6.3 g/dL (6.3-8.2)
[2022-11-18 06:02] LABS: POTASSIUM 5.2 mmol/l (3.5-5.1)
[2022-11-18 06:03] LABS: BILIRUBIN, TOTAL 0.3 mg/dL (0.02-1.3)
--- NOTE | 2022-11-18 06:07 | NUR ---
RECEIVED A CRITICAL BUN AND CO2 FROM LAB, PATIENT NURSE MADE AWARE.
--- NOTE | 2022-11-18 07:57 | NUR ---
PT RESTING IN SEMI FOWLERS POSITION. A/OX3 ASSESSMENT COMPLETED. HEART RHYTHM ON TELE. RESPIRAITONS ON 3L OXYGEN HOME DEPENDENT.TRIPLE LUMEN RIJ NOTED S.L CAMPOS CATH IN PLACE DRAINGING PER GRAVITY. PT DENIES ADDITIONAL NEEDS AT THE TIME ALL SAFETY PRECAUTIONS IN PLACE.
--- NOTE | 2022-11-18 10:04 | NUR ---
Staff went to assist pt with feeding pt being very rude to staff telling staff to get out the rm. Staff notify the nurse of pt behavior.
--- NOTE | 2022-11-18 10:12 | NUR ---
CAMPOS REMOVED PER PROVIDER ORDER BLADDER BEFORE REMOVAL 000 NOTED. EDUCATED PT NEED OF USE OF CALL FOR NOTIFICATION TO USE RESTROOM.
[2022-11-18] MEDS ORDERED: VIBRAMYCIN100 M2 PO (11:08)
[2022-11-18] MEDS ORDERED: MEDDOSEPAK PO (11:08)
--- NOTE | 2022-11-18 11:58 | NUR ---
PT EDUCATED NEED OF HOME OXYGEN READY PRIOR LATE DC.
--- NOTE | 2022-11-18 12:11 | NUR ---
PT ASKED FOR SIP OF WATER WATER PROVIDED PT STATED HAS NOT HAD URGE TO URINATE WILL PRESS CALL LIGHT WHEN APPROPRIATE.
--- NOTE | 2022-11-18 12:30 | NUR ---
PATIENT FED TOLERATED FOOD WELL. PT DENIES ADDITIONAL NEEDS AT THE TIME.
--- NOTE | 2022-11-18 15:15 | NUR ---
CAMPOS 16F CAMPOS PLACED PT TOLERATED WELL. URINE DRAINING PER GRAVITY.
--- NOTE | 2022-11-18 16:06 | NUR ---
PT DENIES ADDITIONAL NEEDS AT THE TIME PT TO CALL FAMILY AGAIN REMINDER TO BRING HOME OXYGEN.
--- NOTE | 2022-11-18 17:41 | NUR ---
Discharge instructions given. Patient verbalizes understanding of same. Discharged in stable condition via Medical Transport to Home with staff. All belongings sent with pt. RIJ REMOVED. PER CURATOR OF COLLECTIONS REMOVED PLACED IN BLACK BOX AT NURSING STATION
== END 2022-11-18 17:41 | disposition home health service (06) | DRG 193 ==
LOC: ED 15:30 → ED-I 17:36 → ED 17:49 → ICU 17:50 → MS2 17:50
PROVIDERS: Family Medicine; Internal Medicine Nephrology; ADMIT Internal Medicine; ATTEND Internal Medicine
PROC: 02HV33Z Insertion of Infusion Device into Superior Vena Cava, Percutaneous Approach (ICD-10-PCS; principal; 2022-11-13)
PROC: 5A09357 Assistance with Respiratory Ventilation, Less than 24 Consecutive Hours, Continuous Positive Airway Pressure (ICD-10-PCS; 2022-11-13)
DX: J10.1 Influenza due to other identified influenza virus with other respiratory manifestations (principal); J96.21 Acute and chronic respiratory failure with hypoxia; J96.22 Acute and chronic respiratory failure with hypercapnia; J44.1 Chronic obstructive pulmonary disease with (acute) exacerbation; N25.81 Secondary hyperparathyroidism of renal origin; N17.9 Acute kidney failure, unspecified; I50.22 Chronic systolic (congestive) heart failure; I13.2 Hypertensive heart and chronic kidney disease with heart failure and with stage 5 chronic kidney disease, or end stage renal disease; N18.5 Chronic kidney disease, stage 5; I95.9 Hypotension, unspecified; D63.1 Anemia in chronic kidney disease; E86.9 Volume depletion, unspecified; I48.91 Unspecified atrial fibrillation; M54.12 Radiculopathy, cervical region; E78.5 Hyperlipidemia, unspecified; E11.22 Type 2 diabetes mellitus with diabetic chronic kidney disease; D72.829 Elevated white blood cell count, unspecified; T38.0X5A Adverse effect of glucocorticoids and synthetic analogues, initial encounter; Z95.1 Presence of aortocoronary bypass graft; Z95.818 Presence of other cardiac implants and grafts; Z79.4 Long term (current) use of insulin; Z99.81 Dependence on supplemental oxygen; Z96.0 Presence of urogenital implants; Z20.822 Contact with and (suspected) exposure to COVID-19
CPT/HCPCS: Q5106 EC

== ENCOUNTER 2022-12-08 13:28 | Inpatient (IN) | payer MEDICARE, MEDICAID ==
[2022-12-08] VITALS (35 sets, daily range): BP systolic 111–148; BP diastolic 43–116
[~2022-12-08] VITALS: Ht 157.5 cm; Wt 106.8 kg
[~2022-12-08 13:28] MED LIST changes: +CEPHALEXIN500 MG PO; +CLOPIDOGREL75 MG PO; +CRESTOR10 MG PO; +HUMALOG100 UNIT/M SC; +HYDROXYZ HCL25 MG PO; +PANTOPRAZOLE SO40 M1 PO; +TRELEGY ELLIPTA1 AER IN; +TRULICITY1.5 MG/0.5 SC; +VIBRAMYCIN100 M2 PO
[2022-12-08 16:36] LABS: URINE BILIRUBIN - DIPSTICK NEGATIVE (NEGATIVE); URINE BLOOD DIPSTICK LARGE (NEGATIVE); URINE COLOR BROWN; URINE GLUCOSE - DIPSTICK NEGATIVE (NEGATIVE); URINE KETONE NEGATIVE (NEGATIVE); URINE PH 5.5 (4.5-8.0); URINE PROTEIN - DIPSTICK 100 mg/dL (NEG-TRACE); URINE SPECIFIC GRAVITY 1.025; URINE UROBILINOGEN - DIPSTICK 0.2 E.U./dL (0.2)
[2022-12-08 16:41] LABS: BASO% 0.4 % (0-3); EOS% 4.1 % (0-8); HEMATOCRIT 37.4 % (37.0-47.0); HEMOGLOBIN 10.5 g/dl (12.0-16.0); IMMATURE GRANULOCYTES 2.8 % (0.0-5.0); LYMPH% 21.4 % (15-41); MEAN CELL VOLUME 98.2 fL CALC (80.0-100.0); MEAN CORPUSCULAR HGB 27.6 pG CALC (26.0-32.0); MEAN CORPUSCULAR HGB CONC 28.1 g/dL CAL (32.0-36.0); MONO% 14.4 % (2-13); NEUT# 4.67 thou/uL (2.00-7.15); NEUT% 56.9 % (42-76); RED BLOOD COUNT 3.81 mill/uL (4.20-5.60); RED CELL DISTRI WIDTH 13.9 % (11.5-15.5); URINE LEUK ESTERASE MODERATE (NEGATIVE); URINE NITRITE - DIPSTICK NEGATIVE (Negative)
[2022-12-08 16:51] LABS: URINE RBC TNTC RBC/hpf (0-5); URINE SQUAMOUS EPITHELIAL CELL FEW EPI/hpf (0-FEW); URINE WBC 50-100 WBC/hpf (0-5); URINE YEAST MANY hpf
[2022-12-08 16:57] LABS: ALBUMIN 3.9 g/dL (3.2-5.0); BILIRUBIN, TOTAL 0.2 mg/dL (0.02-1.3); CREATININE 2.7 mg/dL (0.5-1.0); POTASSIUM 4.4 mmol/l (3.5-5.1)
[2022-12-09] VITALS (7 sets, daily range): BP systolic 108–133; BP diastolic 42–50
[2022-12-09 06:39] LABS: ALBUMIN 3.2 g/dL (3.2-5.0); BILIRUBIN, TOTAL 0.2 mg/dL (0.02-1.3); CREATININE 2.4 mg/dL (0.5-1.0); MAGNESIUM 1.9 mg/dL (1.6-2.3); POTASSIUM 4.6 mmol/l (3.5-5.1); TOTAL PROTEIN 5.9 g/dL (6.3-8.2)
[2022-12-09 07:41] LABS: BASO% 0.8 % (0-3); EOS% 4.2 % (0-8); HEMATOCRIT 34.6 % (37.0-47.0); IMMATURE GRANULOCYTES 3.9 % (0.0-5.0); LYMPH% 26.8 % (15-41); MEAN CELL VOLUME 95.6 fL CALC (80.0-100.0); MEAN CORPUSCULAR HGB 27.6 pG CALC (26.0-32.0); MEAN CORPUSCULAR HGB CONC 28.9 g/dL CAL (32.0-36.0); MONO% 14.9 % (2-13); NEUT# 3.65 thou/uL (2.00-7.15); NEUT% 49.4 % (42-76); RED BLOOD COUNT 3.62 mill/uL (4.20-5.60)
[2022-12-10] VITALS (9 sets, daily range): BP systolic 128–144; BP diastolic 42–65
[2022-12-10 08:17] LABS: BASO% 0.5 % (0-3); HEMATOCRIT 32.2 % (37.0-47.0); HEMOGLOBIN 9.3 g/dl (12.0-16.0); LYMPH% 17.7 % (15-41); MEAN CELL VOLUME 95.8 fL CALC (80.0-100.0); MEAN CORPUSCULAR HGB 27.7 pG CALC (26.0-32.0); MEAN CORPUSCULAR HGB CONC 28.9 g/dL CAL (32.0-36.0); MONO% 12.8 % (2-13); NEUT# 5.26 thou/uL (2.00-7.15); RED BLOOD COUNT 3.36 mill/uL (4.20-5.60); RED CELL DISTRI WIDTH 13.9 % (11.5-15.5)
[2022-12-10 08:32] LABS: ALBUMIN 3.1 g/dL (3.2-5.0); BILIRUBIN, TOTAL 0.2 mg/dL (0.02-1.3); CREATININE 2.4 mg/dL (0.5-1.0); TOTAL PROTEIN 5.6 g/dL (6.3-8.2)
[2022-12-10 08:38] LABS: POTASSIUM 5.6 mmol/l (3.5-5.1)
[2022-12-11 04:00] VITALS: BP 134/63
[2022-12-11 07:38] VITALS: BP 153/53
[2022-12-11 08:00] LABS: BASO% 0.3 % (0-3); EOS% 4.2 % (0-8); HEMATOCRIT 34.2 % (37.0-47.0); HEMOGLOBIN 9.3 g/dl (12.0-16.0); IMMATURE GRANULOCYTES 1.4 % (0.0-5.0); MEAN CELL VOLUME 101.5 fL CALC (80.0-100.0); MEAN CORPUSCULAR HGB 27.6 pG CALC (26.0-32.0); MEAN CORPUSCULAR HGB CONC 27.2 g/dL CAL (32.0-36.0); MONO% 14.9 % (2-13); NEUT# 4.02 thou/uL (2.00-7.15); NEUT% 58.2 % (42-76); RED BLOOD COUNT 3.37 mill/uL (4.20-5.60); RED CELL DISTRI WIDTH 13.9 % (11.5-15.5)
[2022-12-11 08:07] LABS: ALBUMIN 3.4 g/dL (3.2-5.0); BILIRUBIN, TOTAL 0.2 mg/dL (0.02-1.3); CREATININE 2.2 mg/dL (0.5-1.0)
[2022-12-11 09:06] LABS: POTASSIUM 5.3 mmol/l (3.5-5.1)
[2022-12-11 10:10] VITALS: BP 139/61
[2022-12-11 14:56] VITALS: BP 143/58
[2022-12-11 18:41] VITALS: BP 142/60
[2022-12-11 19:00] VITALS: BP 142/60
[2022-12-12] VITALS (9 sets, daily range): BP systolic 105–147; BP diastolic 47–59
[2022-12-12 08:56] LABS: CREATININE 2.3 mg/dL (0.5-1.0); MAGNESIUM 2.2 mg/dL (1.6-2.3)
[2022-12-12 09:01] LABS: BASO% 0.5 % (0-3); EOS% 4.6 % (0-8); HEMATOCRIT 33.1 % (37.0-47.0); HEMOGLOBIN 9.3 g/dl (12.0-16.0); IMMATURE GRANULOCYTES 1.4 % (0.0-5.0); MEAN CELL VOLUME 97.6 fL CALC (80.0-100.0); MEAN CORPUSCULAR HGB 27.4 pG CALC (26.0-32.0); MEAN CORPUSCULAR HGB CONC 28.1 g/dL CAL (32.0-36.0); MONO% 14.8 % (2-13); NEUT# 4.65 thou/uL (2.00-7.15); NEUT% 59.7 % (42-76); RED BLOOD COUNT 3.39 mill/uL (4.20-5.60); RED CELL DISTRI WIDTH 13.8 % (11.5-15.5)
[2022-12-12 09:06] LABS: POTASSIUM 5.7 mmol/l (3.5-5.1)
[2022-12-13] VITALS (41 sets, daily range): BP systolic 95–161; BP diastolic 42–132
[2022-12-13 08:26] LABS: CREATININE 2.6 mg/dL (0.5-1.0); MAGNESIUM 2.7 mg/dL (1.6-2.3)
[2022-12-13 08:31] LABS: POTASSIUM 6.4 mmol/l (3.5-5.1)
[2022-12-13 08:40] LABS: BASO% 0.6 % (0-3); EOS% 4.6 % (0-8); HEMATOCRIT 33.4 % (37.0-47.0); HEMOGLOBIN 9.4 g/dl (12.0-16.0); IMMATURE GRANULOCYTES 4.1 % (0.0-5.0); LYMPH% 27.2 % (15-41); MEAN CELL VOLUME 96.5 fL CALC (80.0-100.0); MEAN CORPUSCULAR HGB 27.2 pG CALC (26.0-32.0); MEAN CORPUSCULAR HGB CONC 28.1 g/dL CAL (32.0-36.0); MONO% 12.5 % (2-13); NEUT# 4.03 thou/uL (2.00-7.15); RED BLOOD COUNT 3.46 mill/uL (4.20-5.60); RED CELL DISTRI WIDTH 13.7 % (11.5-15.5)
[2022-12-13 13:49] LABS: CREATININE 2.8 mg/dL (0.5-1.0)
[2022-12-14] VITALS (24 sets, daily range): BP systolic 106–145; BP diastolic 49–87
[2022-12-14 05:35] LABS: BASO% 0.6 % (0-3); EOS% 6.2 % (0-8); HEMATOCRIT 29.4 % (37.0-47.0); HEMOGLOBIN 8.3 g/dl (12.0-16.0); IMMATURE GRANULOCYTES 4.2 % (0.0-5.0); LYMPH% 20.8 % (15-41); MEAN CELL VOLUME 96.4 fL CALC (80.0-100.0); MEAN CORPUSCULAR HGB 27.2 pG CALC (26.0-32.0); MEAN CORPUSCULAR HGB CONC 28.2 g/dL CAL (32.0-36.0); NEUT# 3.79 thou/uL (2.00-7.15); NEUT% 57.2 % (42-76); RED BLOOD COUNT 3.05 mill/uL (4.20-5.60); RED CELL DISTRI WIDTH 13.8 % (11.5-15.5)
[2022-12-14 05:41] LABS: ALBUMIN 2.9 g/dL (3.2-5.0); CREATININE 2.6 mg/dL (0.5-1.0)
[2022-12-14 05:44] LABS: CREATININE 2.8 mg/dL (0.5-1.0); MAGNESIUM 2.7 mg/dL (1.6-2.3)
[2022-12-14 05:49] LABS: POTASSIUM 5.3 mmol/l (3.5-5.1)
[2022-12-14 05:50] LABS: POTASSIUM 5.4 mmol/l (3.5-5.1)
[2022-12-15] VITALS (26 sets, daily range): BP systolic 104–141; BP diastolic 47–95
[2022-12-15 04:24] LABS: HEMOGLOBIN 8.2 g/dl (12.0-16.0); MEAN CELL VOLUME 96.7 fL CALC (80.0-100.0); MEAN CORPUSCULAR HGB 27.3 pG CALC (26.0-32.0); MEAN CORPUSCULAR HGB CONC 28.3 g/dL CAL (32.0-36.0); RED CELL DISTRI WIDTH 13.9 % (11.5-15.5)
[2022-12-15 04:55] LABS: ALBUMIN 3.1 g/dL (3.2-5.0); CREATININE 2.7 mg/dL (0.5-1.0); MAGNESIUM 2.7 mg/dL (1.6-2.3); TOTAL PROTEIN 6.1 g/dL (6.3-8.2)
[2022-12-15 05:00] LABS: BILIRUBIN, TOTAL 0.1 mg/dL (0.02-1.3); POTASSIUM 5.3 mmol/l (3.5-5.1)
[2022-12-16] VITALS (18 sets, daily range): BP systolic 100–139; BP diastolic 45–85
[2022-12-16 04:15] LABS: HEMATOCRIT 29.9 % (37.0-47.0); HEMOGLOBIN 8.3 g/dl (12.0-16.0); MEAN CORPUSCULAR HGB 27.2 pG CALC (26.0-32.0); MEAN CORPUSCULAR HGB CONC 27.8 g/dL CAL (32.0-36.0); RED BLOOD COUNT 3.05 mill/uL (4.20-5.60); RED CELL DISTRI WIDTH 14.1 % (11.5-15.5)
[2022-12-16 04:45] LABS: ALBUMIN 3.3 g/dL (3.2-5.0); BILIRUBIN, TOTAL 0.1 mg/dL (0.02-1.3); CREATININE 2.6 mg/dL (0.5-1.0); MAGNESIUM 2.7 mg/dL (1.6-2.3); TOTAL PROTEIN 6.3 g/dL (6.3-8.2)
[2022-12-16 04:46] LABS: POTASSIUM 5.8 mmol/l (3.5-5.1)
[2022-12-17 06:05] LABS: CREATININE 1.8 mg/dL (0.5-1.0); POTASSIUM 4.8 mmol/l (3.5-5.1)
[2022-12-17 06:11] LABS: ALBUMIN 2.5 g/dL (3.2-5.0)
[2022-12-17 07:36] VITALS: BP 118/51
[2022-12-17 07:39] VITALS: BP 118/51
[2022-12-17 12:00] VITALS: BP 118/51
[2022-12-17 16:30] VITALS: BP 112/49
[2022-12-17 20:04] VITALS: BP 122/54
[2022-12-18] VITALS (10 sets, daily range): BP systolic 102–142; BP diastolic 38–53
[2022-12-18 09:44] LABS: BASO% 0.5 % (0-3); EOS% 6.7 % (0-8); HEMATOCRIT 32.8 % (37.0-47.0); LYMPH% 38.3 % (15-41); MEAN CELL VOLUME 97.6 fL CALC (80.0-100.0); MEAN CORPUSCULAR HGB 26.8 pG CALC (26.0-32.0); MEAN CORPUSCULAR HGB CONC 27.4 g/dL CAL (32.0-36.0); MONO% 11.3 % (2-13); NEUT# 2.78 thou/uL (2.00-7.15); NEUT% 35.9 % (42-76); RED BLOOD COUNT 3.36 mill/uL (4.20-5.60); RED CELL DISTRI WIDTH 14.3 % (11.5-15.5)
[2022-12-18 09:49] LABS: IMMATURE GRANULOCYTES 7.3 % (0.0-5.0)
[2022-12-18 09:51] LABS: BILIRUBIN, TOTAL 0.1 mg/dL (0.02-1.3); CREATININE 2.3 mg/dL (0.5-1.0); MAGNESIUM 2.6 mg/dL (1.6-2.3); TOTAL PROTEIN 5.9 g/dL (6.3-8.2)
[2022-12-18 09:55] LABS: ALBUMIN 3.2 g/dL (3.2-5.0); POTASSIUM 6.1 mmol/l (3.5-5.1)
[2022-12-19] VITALS (7 sets, daily range): BP systolic 106–131; BP diastolic 35–55
[2022-12-19 05:49] LABS: HEMATOCRIT 28.7 % (37.0-47.0); HEMOGLOBIN 7.9 g/dl (12.0-16.0); MEAN CELL VOLUME 97.6 fL CALC (80.0-100.0); MEAN CORPUSCULAR HGB 26.9 pG CALC (26.0-32.0); MEAN CORPUSCULAR HGB CONC 27.5 g/dL CAL (32.0-36.0); RED BLOOD COUNT 2.94 mill/uL (4.20-5.60); RED CELL DISTRI WIDTH 14.4 % (11.5-15.5)
[2022-12-19 06:19] LABS: CREATININE 2.3 mg/dL (0.5-1.0); MAGNESIUM 2.5 mg/dL (1.6-2.3); TOTAL PROTEIN 5.9 g/dL (6.3-8.2)
[2022-12-19 06:31] LABS: POTASSIUM 5.4 mmol/l (3.5-5.1)
[2022-12-20] VITALS (9 sets, daily range): BP systolic 97–151; BP diastolic 27–61
[2022-12-20 07:43] LABS: POTASSIUM 4.9 mmol/l (3.5-5.1)
[2022-12-21] VITALS (12 sets, daily range): BP systolic 97–167; BP diastolic 42–78
[2022-12-21 06:31] LABS: BASO% 0.6 % (0-3); EOS% 3.1 % (0-8); HEMATOCRIT 31.4 % (37.0-47.0); HEMOGLOBIN 8.5 g/dl (12.0-16.0); LYMPH% 27.8 % (15-41); MEAN CELL VOLUME 99.1 fL CALC (80.0-100.0); MEAN CORPUSCULAR HGB 26.8 pG CALC (26.0-32.0); MEAN CORPUSCULAR HGB CONC 27.1 g/dL CAL (32.0-36.0); MONO% 9.5 % (2-13); NEUT# 4.28 thou/uL (2.00-7.15); NEUT% 52.3 % (42-76); RED BLOOD COUNT 3.17 mill/uL (4.20-5.60); RED CELL DISTRI WIDTH 14.8 % (11.5-15.5)
[2022-12-21 06:32] LABS: IMMATURE GRANULOCYTES 6.7 % (0.0-5.0)
[2022-12-21 06:48] LABS: ALBUMIN 3.3 g/dL (3.2-5.0); CREATININE 2.1 mg/dL (0.5-1.0); POTASSIUM 4.7 mmol/l (3.5-5.1); TOTAL PROTEIN 6.2 g/dL (6.3-8.2)
[2022-12-21 06:50] LABS: POTASSIUM 4.8 mmol/l (3.5-5.1)
[2022-12-21 06:52] LABS: BILIRUBIN, TOTAL 0.2 mg/dL (0.02-1.3)
[2022-12-22 03:46] VITALS: BP 127/47
[2022-12-22 04:15] VITALS: BP 127/47
[2022-12-22 07:03] VITALS: BP 102/73
[2022-12-22 09:18] VITALS: BP 125/58
[2022-12-22 11:07] VITALS: BP 124/44
[2022-12-22] MEDS ORDERED: LORTAB5 PO (11:54)
[2022-12-22 15:56] VITALS: BP 114/48
== END 2022-12-22 19:45 | disposition home health service (06) | DRG 193 ==
LOC: ED 13:28 → MS2 19:46 → ICU 12-12 21:09 → MS2 12-12 21:09 → ICU 12-13 11:58 → MS2 12-14 18:33 → ICU 12-14 18:49 → MS2 12-16 15:15
PROVIDERS: Family Medicine; Internal Medicine; Internal Medicine Nephrology; Nurse Practitioner Family; ADMIT Internal Medicine; ATTEND Internal Medicine
PROC: 05H433Z Insertion of Infusion Device into Left Innominate Vein, Percutaneous Approach (ICD-10-PCS; principal; 2022-12-13)
PROC: 5A09457 Assistance with Respiratory Ventilation, 24-96 Consecutive Hours, Continuous Positive Airway Pressure (ICD-10-PCS; 2022-12-13)
DX: J18.9 Pneumonia, unspecified organism (principal); J96.21 Acute and chronic respiratory failure with hypoxia; J96.22 Acute and chronic respiratory failure with hypercapnia; B37.49 Other urogenital candidiasis; I13.2 Hypertensive heart and chronic kidney disease with heart failure and with stage 5 chronic kidney disease, or end stage renal disease; N18.5 Chronic kidney disease, stage 5; N25.81 Secondary hyperparathyroidism of renal origin; I50.22 Chronic systolic (congestive) heart failure; N17.9 Acute kidney failure, unspecified; E87.1 Hypo-osmolality and hyponatremia; E11.22 Type 2 diabetes mellitus with diabetic chronic kidney disease; L89.152 Pressure ulcer of sacral region, stage 2; E87.5 Hyperkalemia; D63.1 Anemia in chronic kidney disease; F41.9 Anxiety disorder, unspecified; E78.5 Hyperlipidemia, unspecified; I25.10 Atherosclerotic heart disease of native coronary artery without angina pectoris; I48.91 Unspecified atrial fibrillation; M47.22 Other spondylosis with radiculopathy, cervical region; R74.8 Abnormal levels of other serum enzymes; E86.9 Volume depletion, unspecified; R33.9 Retention of urine, unspecified; E78.00 Pure hypercholesterolemia, unspecified; Z99.81 Dependence on supplemental oxygen; Z95.818 Presence of other cardiac implants and grafts; Z95.1 Presence of aortocoronary bypass graft; Z95.2 Presence of prosthetic heart valve; Z79.4 Long term (current) use of insulin; Z79.02 Long term (current) use of antithrombotics/antiplatelets; Z20.822 Contact with and (suspected) exposure to COVID-19; Z74.01 Bed confinement status; Z96.0 Presence of urogenital implants
CPT/HCPCS: Q5106 EC

== ENCOUNTER 2022-12-23 16:00 | Emergency (ER) | payer MEDICARE, MEDICAID ==
[2022-12-23] VITALS (7 sets, daily range): BP systolic 97–124; BP diastolic 38–57
[~2022-12-23] VITALS: Ht 157.5 cm; Wt 119.8 kg
[~2022-12-23 16:00] MED LIST changes: +LORTAB5 PO
== END 2022-12-23 19:20 | disposition home or self-care (01) ==
LOC: ED 16:00
DX: J44.1 Chronic obstructive pulmonary disease with (acute) exacerbation (principal); J96.10 Chronic respiratory failure, unspecified whether with hypoxia or hypercapnia; I13.0 Hypertensive heart and chronic kidney disease with heart failure and stage 1 through stage 4 chronic kidney disease, or unspecified chronic kidney disease; E11.22 Type 2 diabetes mellitus with diabetic chronic kidney disease; I50.9 Heart failure, unspecified; N18.9 Chronic kidney disease, unspecified; I48.91 Unspecified atrial fibrillation; Z79.4 Long term (current) use of insulin; Z96.0 Presence of urogenital implants

== ENCOUNTER 2023-01-02 21:28 | Emergency (ER) | payer MEDICARE, MEDICAID ==
[2023-01-02 22:34] LABS: CREATININE 1.8 mg/dL (0.5-1.0); POTASSIUM 4.3 mmol/l (3.5-5.1)
[2023-01-02 23:01] VITALS: BP 103/58
[2023-01-03 00:59] VITALS: BP 137/83
== END 2023-01-03 00:11 | disposition home or self-care (01) ==
LOC: ED 21:28
PROVIDERS: Family Medicine
DX: E11.649 Type 2 diabetes mellitus with hypoglycemia without coma (principal); E11.22 Type 2 diabetes mellitus with diabetic chronic kidney disease; N18.30 Chronic kidney disease, stage 3 unspecified; I11.0 Hypertensive heart disease with heart failure; I50.9 Heart failure, unspecified; I48.91 Unspecified atrial fibrillation; E78.00 Pure hypercholesterolemia, unspecified; Z79.4 Long term (current) use of insulin; Z96.41 Presence of insulin pump (external) (internal)